=== PATIENT | male | born 1985 | race American Indian/Alaskan Native ===

== ENCOUNTER 2017-07-19 20:27 | Emergency (ER) | payer BC | END 2017-07-19 21:59 | disposition home or self-care (01) | LOC: EDBD → ED 20:27 | DX: R42 Dizziness and giddiness (principal); Z53.21 Procedure and treatment not carried out due to patient leaving prior to being seen by health care provider ==

== ENCOUNTER 2017-11-24 17:48 | Emergency (ER) | payer SELFPAY ==
[2017-11-24 18:20] VITALS: BP 132/84
[2017-11-24] MEDS ORDERED: MOTRIN PO ONE (20:00)
--- NOTE | 2017-11-24 20:02 | Emergency Department Report ---
ED ENT HPI - General Chief complaint: Sore Throat Stated complaint: MOUTH AND TOOTH PAIN Time Seen by Provider: 11/24/17 19:55 Source: patient Mode of arrival: Ambulatory Limitations: No Limitations - History of Present Illness Initial comments: 32-year-old -Filipino male comes in reporting that he has a bad tooth in the back upper jaw. Patient reports that it's been going on for the last 3 days. Patient reports that it is worse with spitting and swallowing. He reports that he had tried to open a bottle with his teeth in tooth had broken. Patient reports he has been using oral gel and Advil. Patient denies any fever or chills no nausea no vomiting he says he gets dizzy every so often he reports is up-to-date and his vaccines he does not have a primary care provider, currently takes no medications on a daily basis, and has no known drug allergies. MD complaint: tooth pain, difficulty swallowing -: days(s) (3) Location: tooth # (15) Severity: moderate Severity scale (0 -10): 5 Consistency: constant Improves with: none Worsens with: swallowing, eating Context- Dental: trauma (total trauma based on a bottle cap) - Related Data Previous Rx's Medication Instructions Recorded Last Taken Type Meclizine [Antivert] 25 mg PO Q6HR #12 tablet 04/02/13 Unknown Rx Promethazine [Phenergan] 25 mg PO Q6H PRN #12 tablet 04/02/13 Unknown Rx Meclizine [Antivert] 25 mg PO Q8H PRN #30 tablet 09/14/14 Unknown Rx predniSONE [Deltasone] 20 mg PO TID #15 tab 09/14/14 Unknown Rx traMADol [Ultram] 50 mg PO Q6HR PRN #14 tablet 10/17/14 Unknown Rx Amoxicillin 500 mg PO Q8H #30 capsule 11/24/17 Unknown Rx Ibuprofen [Motrin 600 MG tab] 600 mg PO Q8H PRN #30 tablet 11/24/17 Unknown Rx Allergies Allergy/AdvReac Type Severity Reaction Status Date / Time No Known Allergies Allergy Unverified 04/02/13 08:55 ED Dental HPI - General Chief complaint: Sore Throat Stated complaint: MOUTH AND TOOTH PAIN Time Seen by Provider: 11/24/17 19:55 Source: patient Mode of arrival: Ambulatory Limitations: No Limitations - Related Data Previous Rx's Medication Instructions Recorded Last Taken Type Meclizine [Antivert] 25 mg PO Q6HR #12 tablet 04/02/13 Unknown Rx Promethazine [Phenergan] 25 mg PO Q6H PRN #12 tablet 04/02/13 Unknown Rx Meclizine [Antivert] 25 mg PO Q8H PRN #30 tablet 09/14/14 Unknown Rx predniSONE [Deltasone] 20 mg PO TID #15 tab 09/14/14 Unknown Rx traMADol [Ultram] 50 mg PO Q6HR PRN #14 tablet 10/17/14 Unknown Rx Amoxicillin 500 mg PO Q8H #30 capsule 11/24/17 Unknown Rx Ibuprofen [Motrin 600 MG tab] 600 mg PO Q8H PRN #30 tablet 11/24/17 Unknown Rx Allergies Allergy/AdvReac Type Severity Reaction Status Date / Time No Known Allergies Allergy Unverified 04/02/13 08:55 ED Review of Systems ROS: Stated complaint: MOUTH AND TOOTH PAIN Other details as noted in HPI ENT: dental pain ED Past Medical Hx - Past Medical History Previous Medical History?: No Additional medical history: VERTIGO - Social History Smoking Status: Current Every Day Smoker Substance Use Type: None - Medications Home Medications: Home Medications Medication Instructions Recorded Confirmed Last Taken Type Meclizine [Antivert] 25 mg PO Q6HR #12 tablet 04/02/13 Unknown Rx Promethazine [Phenergan] 25 mg PO Q6H PRN #12 tablet 04/02/13 Unknown Rx Meclizine [Antivert] 25 mg PO Q8H PRN #30 tablet 09/14/14 Unknown Rx predniSONE [Deltasone] 20 mg PO TID #15 tab 09/14/14 Unknown Rx traMADol [Ultram] 50 mg PO Q6HR PRN #14 tablet 10/17/14 Unknown Rx Amoxicillin 500 mg PO Q8H #30 capsule 11/24/17 Unknown Rx Ibuprofen [Motrin 600 MG tab] 600 mg PO Q8H PRN #30 tablet 11/24/17 Unknown Rx ED Physical Exam - General Limitations: No Limitations - Head Head exam: Present: atraumatic, normocephalic - Eye Eye exam: Present: normal appearance - ENT ENT exam: Present: mucous membranes moist - Expanded ENT Exam Expanded Teeth exam: Present: fractured tooth # (15), dental tenderness # (15), gingival enlargement - Neck Neck exam: Present: full ROM, lymphadenopathy - Neurological Exam Neurological exam: Present: alert, oriented X3 - Psychiatric Psychiatric exam: Present: normal affect, normal mood - Skin Skin exam: Present: warm, dry, intact, normal color. Absent: rash ED Course Vital Signs 11/24/17 18:17 Temperature 98.8 F Pulse Rate 70 Respiratory 18 Rate Blood Pressure 132/84 O2 Sat by Pulse 100 Oximetry ED Medical Decision Making - Medical Decision Making Patient has been evaluated by this provider fast track. Patient will be given ibuprofen 800 mg for pain management. Will discharge patient on amoxicillin 500 mg by mouth every 8 hours for 10 days. Discharged patient on ibuprofen 800 mg by mouth every 8 hours for 10 days as needed for pain management We'll place several referrals for dental clinics for his convenience. Critical care attestation.: If time is entered above; I have spent that time in minutes in the direct care of this critically ill patient, excluding procedure time. ED Disposition Clinical Impression: Dental abscess Disposition: TO HOME OR SELFCARE Is pt being admited?: No Does the pt Need Aspirin: No Condition: Stable Instructions: Toothache (ED), Acute dental trauma (ED), Dental Abscess (ED) Additional Instructions: Please complete antibiotics as prescribed. Take pain medication as needed. Follow-up with one of the dentists I have listed below. Prescriptions: Amoxicillin 500 mg PO Q8H #30 capsule Ibuprofen [Motrin 600 MG tab] 600 mg PO Q8H PRN #30 tablet PRN Reason: Pain Referrals: PRIMARY CARE [Primary Care Provider] - 3-5 Days [facility] [Provider Group] - 3-5 Days [facility] [Outside] - 3-5 Days [facility] [Outside] - 3-5 Days Forms: Work/School Release Form(ED), Accompanied Note
== END 2017-11-24 20:15 | disposition home or self-care (01) ==
LOC: ED 17:48
DX: K04.7 Periapical abscess without sinus (principal); F17.200 Nicotine dependence, unspecified, uncomplicated
CPT/HCPCS: 99282

== ENCOUNTER 2019-03-24 19:09 | Emergency (ER) | payer SELFPAY ==
[2019-03-24] MEDS ORDERED: MECLIZINE 25 MG TAB PO ONE (19:49)
[2019-03-24] MEDS ORDERED: ONDANSETRON 4 MG ODT TAB PO ONE (19:50)
--- NOTE | 2019-03-24 19:55 | Emergency Department Report ---
ED General Adult HPI - General Chief complaint: Nausea/Vomiting/Diarrhea Stated complaint: VERTIGO Time Seen by Provider: 03/24/19 19:24 Source: patient, EMS Mode of arrival: Stretcher Limitations: No Limitations - History of Present Illness Initial comments: The patient presents to the emergency department with a chief complaint of dizziness that started around 5:30 PM while at work. Patient describes the dizziness as the room is spinning and is relieved when sitting still. Patient complains of nausea but denies any vomiting. Patient denies any head trauma or any other trauma. Patient states he's had this type of dizziness in the past. -: Sudden Severity scale (0 -10): 0 Consistency: intermittent Improves with: rest Worsens with: movement Associated Symptoms: denies other symptoms Treatments Prior to Arrival: none - Related Data Previous Rx's Medication Instructions Recorded Last Taken Type Meclizine [Antivert] 25 mg PO Q6HR #12 tablet 04/02/13 Unknown Rx Promethazine [Phenergan] 25 mg PO Q6H PRN #12 tablet 04/02/13 Unknown Rx Meclizine [Antivert] 25 mg PO Q8H PRN #30 tablet 09/14/14 Unknown Rx predniSONE [Deltasone] 20 mg PO TID #15 tab 09/14/14 Unknown Rx traMADol [Ultram] 50 mg PO Q6HR PRN #14 tablet 10/17/14 Unknown Rx Amoxicillin 500 mg PO Q8H #30 capsule 11/24/17 Unknown Rx Ibuprofen [Motrin 600 MG tab] 600 mg PO Q8H PRN #30 tablet 11/24/17 Unknown Rx Meclizine [Antivert] 25 mg PO TID PRN #30 tablet 03/24/19 Unknown Rx diazePAM TAB [Valium] 5 mg PO BID PRN #8 tab 03/24/19 Unknown Rx Allergies Allergy/AdvReac Type Severity Reaction Status Date / Time No Known Allergies Allergy Unverified 04/02/13 08:55 ED Review of Systems ROS: Stated complaint: VERTIGO Other details as noted in HPI Comment: All other systems reviewed and negative Constitutional: denies: chills, fever Eyes: denies: eye pain, eye discharge, vision change ENT: denies: ear pain, throat pain Respiratory: denies: cough, shortness of breath, wheezing Cardiovascular: denies: chest pain, palpitations Endocrine: no symptoms reported Gastrointestinal: denies: abdominal pain, nausea, diarrhea Genitourinary: denies: urgency, dysuria Musculoskeletal: denies: back pain, joint swelling, arthralgia Skin: denies: rash, lesions Neurological: vertigo. denies: headache, weakness, paresthesias Psychiatric: denies: anxiety, depression Hematological/Lymphatic: denies: easy bleeding, easy bruising ED Past Medical Hx - Past Medical History Previous Medical History?: Yes Additional medical history: VERTIGO - Surgical History Past Surgical History?: No - Social History Smoking Status: Current Every Day Smoker Substance Use Type: None - Medications Home Medications: Home Medications Medication Instructions Recorded Confirmed Last Taken Type Meclizine [Antivert] 25 mg PO Q6HR #12 tablet 04/02/13 Unknown Rx Promethazine [Phenergan] 25 mg PO Q6H PRN #12 tablet 04/02/13 Unknown Rx Meclizine [Antivert] 25 mg PO Q8H PRN #30 tablet 09/14/14 Unknown Rx predniSONE [Deltasone] 20 mg PO TID #15 tab 09/14/14 Unknown Rx traMADol [Ultram] 50 mg PO Q6HR PRN #14 tablet 10/17/14 Unknown Rx Amoxicillin 500 mg PO Q8H #30 capsule 11/24/17 Unknown Rx Ibuprofen [Motrin 600 MG tab] 600 mg PO Q8H PRN #30 tablet 11/24/17 Unknown Rx Meclizine [Antivert] 25 mg PO TID PRN #30 tablet 03/24/19 Unknown Rx diazePAM TAB [Valium] 5 mg PO BID PRN #8 tab 03/24/19 Unknown Rx ED Physical Exam - General Limitations: No Limitations General appearance: alert, in no apparent distress - Head Head exam: Present: atraumatic, normocephalic - Eye Eye exam: Present: normal appearance, PERRL, EOMI - ENT ENT exam: Present: mucous membranes moist - Neck Neck exam: Present: normal inspection - Respiratory Respiratory exam: Present: normal lung sounds bilaterally. Absent: respiratory distress - Cardiovascular Cardiovascular Exam: Present: regular rate, normal rhythm. Absent: systolic murmur, diastolic murmur, rubs, gallop - GI/Abdominal GI/Abdominal exam: Present: soft, normal bowel sounds. Absent: distended, tenderness - Rectal Rectal exam: Present: deferred - Extremities Exam Extremities exam: Present: normal inspection - Back Exam Back exam: Present: normal inspection - Neurological Exam Neurological exam: Present: alert, oriented X3, CN II-XII intact, other (able to recreate sx with rapid head and eye movement ). Absent: motor sensory deficit - Psychiatric Psychiatric exam: Present: normal affect, normal mood - Skin Skin exam: Present: warm, dry, intact, normal color. Absent: rash ED Course Vital Signs 03/24/19 03/24/19 03/24/19 19:16 19:17 19:19 Temperature Respiratory Rate Blood Pressure 114/70 114/70 O2 Sat by Pulse 100 100 100 Oximetry 03/24/19 03/24/19 03/24/19 19:21 19:23 19:24 Temperature 97.5 F L Respiratory Rate Blood Pressure 114/70 114/70 O2 Sat by Pulse 100 100 Oximetry 03/24/19 03/24/19 03/24/19 19:25 19:27 19:31 Temperature Respiratory Rate Blood Pressure 114/70 114/70 114/70 O2 Sat by Pulse 100 100 99 Oximetry 03/24/19 03/24/19 03/24/19 19:36 20:00 20:31 Temperature Respiratory 18 Rate Blood Pressure 109/72 109/72 O2 Sat by Pulse 100 99 99 Oximetry 03/24/19 03/24/19 21:00 21:31 Temperature Respiratory Rate Blood Pressure 117/76 117/76 O2 Sat by Pulse 99 99 Oximetry ED Medical Decision Making - Radiology Data Radiology results: report reviewed - Medical Decision Making The patient had no relief of his symptoms with Antivert and Zofran both the CT of the head was obtained Critical care attestation.: If time is entered above; I have spent that time in minutes in the direct care of this critically ill patient, excluding procedure time. ED Disposition Clinical Impression: Vertigo Disposition: DC-01 TO HOME OR SELFCARE Is pt being admited?: No Does the pt Need Aspirin: No Condition: Stable Instructions: Vertigo (ED) Additional Instructions: return if worse Prescriptions: Meclizine [Antivert] 25 mg PO TID PRN #30 tablet PRN Reason: Vertigo diazePAM TAB [Valium] 5 mg PO BID PRN #8 tab PRN Reason: Vertigo Referrals: PRIMARY CARE,MD [Primary Care Provider] - 3-5 Days [facility] [Provider Group] - 3-5 Days [facility] [Provider Group] - 3-5 Days Time of Disposition: 22:39
[2019-03-24] MEDS ORDERED: diazePAM 5 MG TAB PO ONE (20:59)
--- NOTE | 2019-03-24 22:16 | Cat Scan Report ---
CT HEAD WITHOUT CONTRAST INDICATION / CLINICAL INFORMATION: vertigo not improved with meds. TECHNIQUE: All CT scans at this location are performed using CT dose reduction for ALARA by means of automated e xposure control. COMPARISON: None available. FINDINGS: HEMORRHAGE: None. EXTRA-AXIAL SPACES: Normal in size and morphology for the patient's age. VENTRICULAR SYSTEM: Normal in size and morphology for the patient's age. CEREBRAL PARENCHYMA: No significant abnormality. No acute territorial infarct. MIDLINE SHIFT OR HERNIATION: None. CEREBELLUM / BRAINSTEM: No significant abnormality. ORBITS: Normal as visualized. SOFT TISSUES of HEAD: No significant abnormality. CALVARIUM: No significant abnormality. PARANASAL SINUSES / MASTOID AIR CELLS: Normal as visualized. ADDITIONAL FINDINGS: None. IMPRESSION: 1. No acute intracranial abnormality. Signer Name: Eugene Patel MD Signed: 03/24/2019 10:12 PM Workstation Name: [id number]
[2019-03-24 22:31] VITALS: BP 117/76
== END 2019-03-24 23:00 | disposition home or self-care (01) ==
LOC: ED 19:09
DX: R42 Dizziness and giddiness (principal); F17.200 Nicotine dependence, unspecified, uncomplicated; Z79.899 Other long term (current) drug therapy
CPT/HCPCS: 70450; Q0162

== ENCOUNTER 2021-05-04 05:27 | Emergency (ER) | payer BC ==
[2021-05-04] MEDS ORDERED: KETOROLAC 30 MG/1 ML INJ IM ONE (06:39)
[2021-05-04] MEDS ORDERED: ACETAMINOPHEN 325 MG TAB PO ONE (06:39)
--- NOTE | 2021-05-04 06:40 | Emergency Department Report ---
ED General Adult HPI - General Chief complaint: Back Pain/Injury Stated complaint: KIDNEY PAIN PUI?: No Time Seen by Provider: 05/04/21 06:37 Source: patient, RN notes reviewed, old records reviewed Mode of arrival: Ambulatory Limitations: No Limitations - History of Present Illness Initial comments: The patient is a pleasant and cooperative 36-year-old gentleman. He presents to the ER with a complaint of nontraumatic bilateral paralumbar flank pain, "I think it is my kidneys." The patient reports that he does heavy lifting for work, and "I know what my usual back pain feels like." He also reports that he has right flank pain that radiates around to his right lower quadrant and groin. He denies testicular pain. He denies headache, neck pain, chest pain, vomiting, diaphoresis, irritative and obstructive urinary symptoms. He denies hematuria. He denies extremity weakness and numbness. -: Gradual, days(s) Location: back Radiation: abdomen, periumbillical, flank Quality: aching Consistency: intermittent Improves with: none Worsens with: none Associated Symptoms: denies other symptoms - Related Data Previous Rx's Medication Instructions Recorded Last Taken Type Meclizine [Antivert] 25 mg PO Q6HR #12 tablet 04/02/13 Unknown Rx Meclizine [Antivert] 25 mg PO Q8H PRN #30 tablet 09/14/14 Unknown Rx Ibuprofen [Motrin 600 MG tab] 600 mg PO Q8H PRN #30 tablet 11/24/17 Unknown Rx Meclizine [Antivert] 25 mg PO TID PRN #30 tablet 03/24/19 Unknown Rx Acetaminophen [Non-Aspirin Extra 650 mg PO Q6HR PRN #30 tablet 05/04/21 Unknown Rx Strength] Ibuprofen [Motrin] 600 mg PO Q8H PRN #30 tablet 05/04/21 Unknown Rx Allergies Allergy/AdvReac Type Severity Reaction Status Date / Time No Known Allergies Allergy Unverified 04/02/13 08:55 ED Review of Systems ROS: Stated complaint: KIDNEY PAIN Other details as noted in HPI Comment: All other systems reviewed and negative Gastrointestinal: abdominal pain. denies: nausea, vomiting Genitourinary: denies: urgency, dysuria, frequency, testicular pain Musculoskeletal: back pain ED Past Medical Hx - Past Medical History Previous Medical History?: Yes Additional medical history: VERTIGO - Surgical History Past Surgical History?: No - Social History Smoking Status: Current Every Day Smoker Substance Use Type: None - Medications Home Medications: Home Medications Medication Instructions Recorded Confirmed Last Taken Type Meclizine [Antivert] 25 mg PO Q6HR #12 tablet 04/02/13 Unknown Rx Meclizine [Antivert] 25 mg PO Q8H PRN #30 tablet 09/14/14 Unknown Rx Ibuprofen [Motrin 600 MG tab] 600 mg PO Q8H PRN #30 tablet 11/24/17 Unknown Rx Meclizine [Antivert] 25 mg PO TID PRN #30 tablet 03/24/19 Unknown Rx Acetaminophen [Non-Aspirin Extra 650 mg PO Q6HR PRN #30 tablet 05/04/21 Unknown Rx Strength] Ibuprofen [Motrin] 600 mg PO Q8H PRN #30 tablet 05/04/21 Unknown Rx ED Physical Exam - General Limitations: No Limitations General appearance: alert, in no apparent distress - Head Head exam: Present: atraumatic, normocephalic - Eye Eye exam: Present: normal appearance, EOMI. Absent: nystagmus - ENT ENT exam: Present: normal exam, normal orophraynx, mucous membranes moist, normal external ear exam - Neck Neck exam: Present: normal inspection, full ROM. Absent: tenderness, meningismus - Respiratory Respiratory exam: Present: normal lung sounds bilaterally. Absent: respiratory distress, wheezes, rales, rhonchi, stridor, decreased breath sounds - Cardiovascular Cardiovascular Exam: Present: regular rate, normal rhythm, normal heart sounds. Absent: bradycardia, tachycardia, irregular rhythm, systolic murmur, diastolic murmur, rubs, gallop - GI/Abdominal GI/Abdominal exam: Present: soft, tenderness, normal bowel sounds, other (There is right flank and right lower quadrant tenderness to deep palpation.). Absent: distended, guarding, rebound, rigid, pulsatile mass - Rectal Rectal exam: Present: deferred - Extremities Exam Extremities exam: Present: normal inspection, full ROM, other (2+ pulses noted in the bilateral upper and lower extremities. There is no palpable cord. negative Homans sign. Muscular compartments are soft. The pelvis is stable.). Absent: pedal edema, calf tenderness - Back Exam Back exam: Present: normal inspection, full ROM, paraspinal tenderness. Absent: CVA tenderness (R), CVA tenderness (L), vertebral tenderness - Neurological Exam Neurological exam: Present: alert, oriented X3, normal gait, other (No facial droop. Tongue midline. Extraocular movements intact bilaterally. Facial sensation intact to light touch in V1, V2, V3 distribution bilaterally. 5 and a 5 strength in 4 extremities. Sensation intact to light touch in 4 extremities.). Absent: motor sensory deficit - Psychiatric Psychiatric exam: Present: normal affect, normal mood - Skin Skin exam: Present: warm, dry, intact, normal color. Absent: rash ED Course Vital Signs 05/04/21 05/04/21 05:29 07:51 Temperature 98.4 F 97.9 F Pulse Rate 84 68 Respiratory 18 12 Rate Blood Pressure 134/81 Blood Pressure 106/82 [Left] O2 Sat by Pulse 99 100 Oximetry - Reevaluation(s) Reevaluation #1: 05/04/21 07:13 Differential diagnosis, including but not limited to: Renal colic, appendicitis, mechanical back pain, urinary tract infection Assessment and plan: 36-year-old gentleman, who was afebrile, with reassuring vital signs, who is not currently tachycardic, tachypneic or hypoxic, who denies DVT/PE risk factors, who is low risk by Wells criteria, and PERC negative, presenting to the ER with bilateral flank pain, more prominently right flank pain that radiates around to the right lower quadrant and groin. We will check appropriate laboratory studies, urinalysis, treat his pain, obtain CT scan of the abdomen pelvis, and reassess. I discussed this plan of care with the patient. He articulated understanding 05/04/21 08:[address] scan abdomen pelvis negative for acute disease. Urinalysis shows microscopic hematuria. Patient endorsing readiness for discharge. States that he feels improved. Can follow-up with outpatient primary care or for microscopic hematuria. 1+ bacteriuria reviewed and appreciated, the patient denies irritative and obstructive urinary symptoms. ED Medical Decision Making - Lab Data Result diagrams: 05/04/21 06:36 05/04/21 06:36 Vital Signs 05/04/21 05:29 Temperature 98.4 F Pulse Rate 84 Respiratory 18 Rate Blood Pressure 134/81 O2 Sat by Pulse 99 Oximetry Vital Signs 05/04/21 05/04/21 05:29 07:51 Temperature 98.4 F 97.9 F Pulse Rate 84 68 Respiratory 18 12 Rate Blood Pressure 134/81 Blood Pressure 106/82 [Left] O2 Sat by Pulse 99 100 Oximetry Lab Results 05/04/21 05/04/21 05/04/21 Range/Units 06:35 06:36 06:36 WBC 7.5 (4.5-11.0) K/mm3 RBC 4.82 (3.65-5.03) M/mm3 Hgb 14.7 (11.8-15.2) gm/dl Hct 45.1 (35.5-45.6) % MCV 94 (84-94) fl MCH 31 (28-32) pg MCHC 33 (32-34) % RDW 14.4 (13.2-15.2) % Plt Count 272 (140-440) K/mm3 Lymph % (Auto) 30.0 (13.4-35.0) % Lyman % (Auto) 10.1 H (0.0-7.3) % Eos % (Auto) 4.0 (0.0-4.3) % Baso % (Auto) 0.3 (0.0-1.8) % Lymph # (Auto) 2.3 (1.2-5.4) K/mm3 [place]yman # (Auto) 0.8 (0.0-0.8) K/mm3 Eos # (Auto) 0.3 (0.0-0.4) K/mm3 Baso # (Auto) 0.0 (0.0-0.1) K/mm3 Seg Neutrophils % 55.6 (40.0-70.0) % Seg Neutrophils # 4.2 (1.8-7.7) K/mm3 Sodium 140 (137-145) mmol/L Potassium 4.3 (3.6-5.0) mmol/L Chloride 105.2 (98-107) mmol/L Carbon Dioxide 24 (22-30) mmol/L Anion Gap 15 mmol/L BUN 9 (9-20) mg/dL Creatinine 0.9 (0.8-1.3) mg/dL Estimated GFR > 60 ml/min BUN/Creatinine Ratio 10 % Glucose 89 (75-100) mg/dL Calcium 9.0 (8.4-10.2) mg/dL Total Bilirubin 0.30 (0.1-1.2) mg/dL AST 24 (5-40) units/L ALT 38 (7-56) units/L Alkaline Phosphatase 83 (35-129) units/L Total Protein 7.7 (6.3-8.2) g/dL Albumin 4.7 (3.9-5) g/dL Albumin/Globulin Ratio 1.6 % Urine Color Colorless (Yellow) Urine Turbidity Clear (Clear) Urine pH 7.0 (5.0-7.0) Ur Specific [place] 1.004 (1.003-1.030) Urine Protein <15 mg/dl (Negative) mg/dL Urine Glucose (UA) Neg (Negative) mg/dL Urine Ketones Neg (Negative) mg/dL Urine Blood Sm (Negative) Urine Nitrite Neg (Negative) Urine Bilirubin Neg (Negative) Urine Urobilinogen < 2.0 (<2.0) mg/dL Ur Leukocyte Esterase Neg (Negative) Urine WBC (Auto) 1.0 (0.0-6.0) /HPF Urine RBC (Auto) 8.0 (0.0-6.0) /HPF U Epithel Cells (Auto) 2.0 (0-13.0) /HPF Urine Bacteria (Auto) 1+ (Negative) /HPF - Radiology Data Radiology results: pending, report reviewed, image reviewed CT ABDOMEN AND PELVIS WITHOUT CONTRAST INDICATION / CLINICAL INFORMATION: Bi- Lateral flank pain and R.L.Q. abd pain. TECHNIQUE: Axial CT images were obtained through the abdomen and pelvis without IV contrast. All CT scans at this location are performed using CT dose reduction for ALARA by means of automated exposure control. COMPARISON: None available. FINDINGS: LOWER CHEST: No significant abnormality LIVER: No significant abnormality GALLBLADDER/BILIARY TREE: No significant abnormality PANCREAS: No significant abnormality SPLEEN: No significant abnormality ADRENALS: No significant abnormality KIDNEYS / URETER: No significant abnormality. No urolithiasis or hydronephrosis. URINARY BLADDER: No significant abnormality REPRODUCTIVE ORGANS: No significant abnormality STOMACH / BOWEL: Small bowel is normal in caliber. The colon is unremarkable. The appendix is normal in caliber. LYMPH NODES: No significant adenopathy. VASCULATURE: No significant abnormality. OTHER: No free air, free fluid, or focal fluid collection is identified. SKELETAL SYSTEM: No acute osseous findings. IMPRESSION: 1. No significant abnormality of the abdomen or pelvis. 2. No urolithiasis or hydronephrosis. 3. Normal appendix. Signer Name: Rj Garcia MD Signed: 05/04/2021 6:18 AM Workstation Name: [id number] Critical care attestation.: If time is entered above; I have spent that time in minutes in the direct care of this critically ill patient, excluding procedure time. ED Disposition Clinical Impression: Back pain, Right lower quadrant pain, Bilateral flank pain, Microscopic hematuria Disposition: 01 HOME / SELF CARE / HOMELESS Is pt being admited?: No Does the pt Need Aspirin: No Condition: Good Instructions: Hematuria, Adult, Acute Back Pain, Adult Additional Instructions: Rest, and avoid heavy lifting. Avoid strenuous physical activities. Alternate ice packs and heat packs as needed for physical pain. Take the prescribed pain medication as needed and directed. Follow-up with a primary care doctor or urologist for microscopic hematuria in the next 2 weeks. Patient receiving names, phone numbers, addresses a local primary care, local urology. Please avoid consumption of tobacco, cigarettes, and alcohol. Please return to the emergency room right away with new pain, worsened pain, migration of pain, projectile vomiting, change in mental status, confusion, caitlin bility to tolerate liquid feeds, new, worsened or different symptoms not present on the initial emergency room evaluation. Referrals: [facility] [Provider Group] - 3-5 Days [facility] [Provider Group] - as needed Forms: Work/School Release Form(ED)
[2021-05-04 07:19] LABS: Basophils % (Auto) 0.3 % (0.0-1.8); Eosinophils # (Auto) 0.3 K/mm3 (0.0-0.4); Hematocrit 45.1 % (35.5-45.6); Hemoglobin 14.7 gm/dl (11.8-15.2); Lymphocytes # (Auto) 2.3 K/mm3 (1.2-5.4); Mean Corpuscular HGB Conc 33 % (32-34); Mean Corpuscular Volume 94 fl (84-94); Monocytes # (Auto) 0.8 K/mm3 (0.0-0.8); Monocytes % (Auto) 10.1 % (0.0-7.3); Platelet Count 272 K/mm3 (140-440); Red Blood Count 4.82 M/mm3 (3.65-5.03); Red Cell Distribution Width 14.4 % (13.2-15.2)
--- NOTE | 2021-05-04 07:22 | Cat Scan Report ---
CT ABDOMEN AND PELVIS WITHOUT CONTRAST INDICATION / CLINICAL INFORMATION: Bi-Lateral flank pain and R.L.Q. abd pain. TECHNIQUE: Axial CT images were obtained through the abdomen and pelvis without IV contrast. All CT scans at this location are performed using CT dose reduction for ALARA by means of automated exposure control. COMPARISON: None available. FINDINGS: LOWER CHEST: No significant abnormality LIVER: No significant abnormality GALLBLADDER/BILIARY TREE: No significant abnormality PANCREAS: No significant abnormality SPLEEN: No significant abnormality ADRENALS: No significant abnormality KIDNEYS / URETER: No significant abnormality. No urolithiasis or hydronephrosis. URINARY BLADDER: No significant abnormality REPRODUCTIVE ORGANS: No significant abnormality STOMACH / BOWEL: Small bowel is normal in caliber. The colon is unremarkable. The appendix is normal in caliber. LYMPH NODES: No significant adenopathy. VASCULATURE: No significant abnormality. OTHER: No free air, free fluid, or focal fluid collection is identified. SKELETAL SYSTEM: No acute osseous findings. IMPRESSION: 1. No significant abnormality of the abdomen or pelvis. 2. No urolithiasis or hydronephrosis. 3. Normal appendix. Signer Name: Rj Garcia MD Signed: 05/04/2021 7:18 AM Workstation Name: [id number]
[2021-05-04 07:41] LABS: Alanine Aminotransferase 38 units/L (7-56); Albumin 4.7 g/dL (3.9-5); BUN/Creatinine Ratio 10; Blood Urea Nitrogen 9 mg/dL (9-20); Hemolysis Index 10
[2021-05-04 07:53] VITALS: BP 106/82
[2021-05-04 07:56] LABS: Bacteria,Urine 1+ /HPF (Negative); Bilirubin,Urine NEG (Negative); Blood,Urine SM (Negative); Color,Urine Colorless (Yellow); Protein,Urine <15 mg/dL mg/dL (Negative); Urobilinogen,Urine < 2.0 mg/dL (<2.0)
== END 2021-05-04 08:52 | disposition home or self-care (01) ==
LOC: ED 05:27
DX: M54.50 Low back pain, unspecified (principal); R10.31 Right lower quadrant pain; R10.9 Unspecified abdominal pain; R31.29 Other microscopic hematuria; F17.200 Nicotine dependence, unspecified, uncomplicated
CPT/HCPCS: 36415; 74176; 80053; 81001; 85025; 96372; 99284; J1885